=== PATIENT | female | born 1995 | race Caucasian/White ===

== ENCOUNTER 2021-06-07 09:41 | Emergency (ER) | payer OTHER ==
[2021-06-07] MEDS ORDERED: KETOROLAC 30 MG/ML INJ ONE (10:56)
[2021-06-07] MEDS ORDERED: NA CHLORIDE 0.9% 1,000 ML ONE (10:56)
[2021-06-07 11:30] LABS: Absolute Lymphocytes (CBC) 1.8 K/uL (0.7-4.9); Basophils % 0.4 % (0-1.3); Hematocrit 36.3 % (36.0-45.0); Lymphocytes % 13.8 % (15.3-44.8); MPV 7.5 fL (7.6-11.3)
[2021-06-07 11:33] LABS: Urine Bacteria <20 /HPF (<20); Urine RBC LOADED /HPF (NONE SEEN)
[2021-06-07 11:45] LABS: ALT/SGPT 61 U/L (12-78); AST/SGOT 23 U/L (15-37); Albumin 3.9 g/dL (3.4-5.0); Alkaline Phosphatase 73 U/L (45-117); BUN Blood Urea Nitrogen 7 mg/dL (7-18); Bicarbonate 28 mmol/L (21-32); Bilirubin Direct < 0.1 mg/dL (0-0.2); Bilirubin Total 0.3 mg/dL (0.2-1.0); Glucose Level 82 mg/dL (74-106); Lipase 49 U/L (73-393); Potassium 3.6 mmol/L (3.5-5.1); Protein, Total 8.1 g/dL (6.4-8.2); Sodium Level 140 mmol/L (136-145)
--- NOTE | 2021-06-07 11:46 | RAD REPORT ---
EXAM DESCRIPTION: CTAbdomen Pelvis W Contrast - 06/07/2021 11:32 am CLINICAL HISTORY: ABD PAIN COMPARISON: No comparisons TECHNIQUE: CT of the abdomen and pelvis was performed. All CT scans are performed using dose optimization technique as appropriate and may include automated exposure control or mA/KV adjustment according to patient size. FINDINGS: Lower chest: No acute abnormality. Liver: No acute abnormality or suspicious lesions. Biliary: No biliary ductal dilatation. Stomach: No significant focal abnormality. Duodenum: No significant focal abnormality. Pancreas: No significant abnormality. Spleen: No significant abnormality. Adrenal: No suspicious lesions. Kidney/ureter: No hydronephrosis. No renal calculi. Retroperitoneum: No retroperitoneal adenopathy. Vascular: No aneurysm. Bowel: Colonic wall thickening extending from the mid transverse colon through the sigmoid is noted. This portion of the colon is under distended. Normal appendix. Peritoneum: No ascites or free air. Small fat containing umbilical hernia. Bladder: Grossly unremarkable. Reproductive: No adnexal masses. Tampon Bones: No acute fracture. Other: n/a IMPRESSION: Mild colitis versus underdistention, otherwise no acute findings identified. Normal appe ndix. No bowel obstruction.
--- NOTE | 2021-06-07 12:34 | EDPHYS ---
Physician Documentation [facility] [place] Name: Susan Metcalf Age: 25 yrs Sex: Female : 1995 Arrival Date: 06/07/2021 Time: 09:46 Bed 18 Private MD: ED Physician Jane Lawrence HPI: 06/07 10:36 This 25 yrs old Female presents to ER via Ambulatory with complaints of Blood ma2 In Urine. 10:36 The patient presents with abdominal pain in the lower abdomen. Onset: The ma2 symptoms/episode began/occurred gradually, 1 day(s) ago. Associated signs and symptoms: Pertinent positives: hematuria, Pertinent negatives: anorexia, chest pain, diarrhea, fever, vaginal discharge, vomiting blood. Severity of pain: At its worst the pain was moderate in the emergency department the pain is unchanged. The patient has not experienced similar symptoms in the past. 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 - Social history:: Smoking status: Patient denies any tobacco usage or history of. Patient/guardian denies using alcohol, street drugs, The patient lives with family. - Family history:: not pertinent. ROS: 10:36 Constitutional: Negative for fever, chills, and weight loss. ma2 10:36 All other systems are negative. Exam: 10:36 Constitutional: This is a well developed, well nourished patient who is awake, alert, ma2 and in no acute distress. Eyes: Pupils equal round and reactive to light, extra-ocular motions intact. Lids and lashes normal. Conjunctiva and sclera are non-icteric and not injected. Cornea within normal limits. Periorbital areas with no swelling, redness, or edema. ENT: Nares patent. No nasal discharge, no septal abnormalities noted. Tympanic membranes are normal and external auditory canals are clear. Oropharynx with no redness, swelling, or masses, exudates, or evidence of obstruction, uvula midline. Mucous membranes moist. Neck: Trachea midline, no thyromegaly or masses palpated, and no cervical lymphadenopathy. Supple, full range of motion without nuchal rigidity, or vertebral point tenderness. No Meningismus. Chest/axilla: Normal chest wall appearance and motion. Nontender with no deformity. No lesions are appreciated. Cardiovascular: Regular rate and rhythm with a normal S1 and S2. No gallops, murmurs, or rubs. Normal PMI, no JVD. No pulse deficits. Respiratory: Lungs have equal breath sounds bilaterally, clear to auscultation and percussion. No rales, rhonchi or wheezes noted. No increased work of breathing, no retractions or nasal flaring. Abdomen/GI: Soft, non-tender, with normal bowel sounds. No distension or tympany. No guarding or rebound. No evidence of tenderness throughout. Back: No spinal tenderness. No costovertebral tenderness. Full range of motion. Skin: Warm, dry with normal turgor. Normal color with no rashes, no lesions, and no evidence of cellulitis. MS/ Extremity: Pulses equal, no cyanosis. Neurovascular intact. Full, normal range of motion. Neuro: Awake and alert, GCS 15, oriented to person, place, time, and situation. Cranial nerves II-XII grossly intact. Motor strength 5/5 in all extremities. Sensory grossly intact. Cerebellar exam normal. Normal gait. Vital Signs: 09:59 BP 126 / 71; Pulse 84; Resp 16; Temp 98.6; Pulse Ox 100% ; Weight 74.84 kg; Height 5 vg1 ft. 7 in. (170.18 cm); Pain 7/10; 09:59 Body Mass Index 25.84 (74.84 kg, 170.18 cm) vg1 MDM: 10:07 Patient medically screened. ma2 10:36 Differential diagnosis: gastritis, gastroesophageal reflux disease, Irritable bowel ma2 syndrome, pancreatitis. 12:33 Data reviewed: vital signs, nurses notes. Counseling: I had a detailed discussion with ma2 the patient and/or guardian regarding: the historical points, exam findings, and any diagnostic results supporting the discharge/admit diagnosis, the presence of at least one elevated blood pressure reading (>120/80) during this emergency department visit, the need for outpatient follow up. Response to treatment: the patient's symptoms have markedly improved after treatment. 06/07 10:34 Order name: Basic Metabolic Panel; Complete Time: 11:58 ma2 06/07 10:34 Order name: CBC with Diff; Complete Time: 11:44 ma2 06/07 10:34 Order name: Hepatic Function; Complete Time: 11:58 ma2 06/07 10:34 Order name: Lipase; Complete Time: 11:58 ma2 06/07 10:56 Order name: Urine Microscopic Only; Complete Time: 11:44 ss 06/07 11:34 Order name: Urine Culture EDMS 06/07 10:07 Order name: Urine Dipstick-Ancillary (obtain specimen); Complete Time: 10:56 ma2 06/07 10:07 Order name: Urine Test (obtain specimen); Complete Time: 10:56 ma2 06/07 10:34 Order name: IV Saline Lock; Complete Time: 11:22 ma2 06/07 10:34 Order name: Labs collected and sent; Complete Time: 11:22 ma2 06/07 10:34 Order name: CT Abd/Pelvis - IV Contrast Only; Complete Time: 11:58 ma2 Administered Medications: 10:48 Drug: Ketorolac 30 mg Route: IVP; Site: right antecubital; sl2 13:17 Follow up: Response: No adverse reaction; Pain is decreased sl2 10:50 Drug: NS 0.9% 1000 ml Route: IV; Rate: 1 bolus; Site: right antecubital; sl2 13:17 Follow up: Response: No adverse reaction; Pain is decreased; IV Status: Completed sl2 infusion; IV Intake: 10ml 12:40 Drug: Rocephin (cefTRIAXone) 1 grams Route: IV; Rate: calculated rate; Site: right sl2 antecubital; 13:17 Follow up: Response: No adverse reaction; IV Status: Completed infusion; IV Intake: [id number] Disposition Summary: 06/07/21 12:33 Discharge Ordered Location: Home ma2 Condition: Stable ma2 Diagnosis - Acute cystitis with hematuria ma2 - Other specified noninfective gastroenteritis and colitis ma2 Followup: ma2 - With: Private Physician - When: Tomorrow - Reason: If symptoms return Discharge Instructions: - Discharge Summary Sheet ma2 - Urinary Tract Infection, Adult, [id number] ma2 Forms: - Medication Reconciliation Form ma2 - Thank You Letter ma2 - Antibiotic Education ma2 - Prescription Opioid Use ma2 Prescriptions: - Flagyl 500 mg Oral Tablet - take 1 tablet by ORAL route every 12 hours for 7 days; 14 tablet; Refills: 0, ma2 Product Selection Permitted - Cipro 500 mg Oral Tablet - take 1 tablet by ORAL route every 12 hours for 7 days; 14 tablet; Refills: 0, ma2 Product Selection Permitted - Diclofenac Sodium 75 mg Oral Tablet Sustained Release - take 1 tablet by ORAL route 2 times per day; 30 tablet; Refills: 0, Product ma2 Selection Permitted Signatures: Dispatcher [employer] EDJane Kaminski MD MD ma2 Any Sigala RN RN vg1 Kim Stuart RN RN sl2
--- NOTE | 2021-06-07 12:34 | ER ---
Nurse's Notes [facility] Name: Susan Metcalf Age: 25 yrs Sex: Female : 1995 Arrival Date: 06/07/2021 Time: 09:46 Bed 18 Private MD: Diagnosis: Acute cystitis with hematuria;Other specified noninfective gastroenteritis and colitis Presentation: 06/07 09:59 Chief complaint: Patient states: Left flank pain x3 days; nausea and dizziness, blood vg1 in urine today, burning upon urination and states pressure. Also states lower ABD pain. Coronavirus screen: Vaccine status: Patient reports receiving the 1st dose of the Covid vaccine. Ebola Screen: Patient negative for fever greater than or equal to 101.5 degrees Fahrenheit, and additional compatible Ebola Virus Disease symptoms. Initial Sepsis Screen: Does the patient meet any 2 criteria? No. Patient's initial sepsis screen is negative. Does the patient have a suspected source of infection? No. Patient's initial sepsis screen is negative. Risk Assessment: Do you want to hurt yourself or someone else? Patient reports no desire to harm self or others. Onset of symptoms was June 04, 2021. 09:59 Method Of Arrival: Ambulatory vg1 09:59 Acuity: JOSE JUAN 3 vg1 Triage Assessment: 10:01 General: Appears in no apparent distress. uncomfortable, Behavior is calm, cooperative. vg1 Pain: Complains of pain in left flank, lower ABD. 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 - Social history:: Smoking status: Patient denies any tobacco usage or history of. Patient/guardian denies using alcohol, street drugs, The patient lives with family. - Family history:: not pertinent. Screenin:50 Abuse screen: Denies threats or abuse. sl2 09:50 Nutritional screening: No deficits noted. Tuberculosis screening: No symptoms or risk sl2 factors identified. Fall Risk None identified. Assessment: 10:10 Reassessment: Patient encouraged to provide urine specimen . sl2 Vital Signs: 09:59 BP 126 / 71; Pulse 84; Resp 16; Temp 98.6; Pulse Ox 100% ; Weight 74.84 kg; Height 5 vg1 ft. 7 in. (170.18 cm); Pain 7/10; 09:59 Body Mass Index 25.84 (74.84 kg, 170.18 cm) vg1 ED Course: 09:46 Patient arrived in ED. ds1 09:50 Patient has correct armband on for positive identification. Bed in low position. Call sl2 light in reach. Side rails up X2. Adult w/ patient. 10:01 Triage completed. vg1 10:01 Arm band placed on. vg1 10:07 Jane Lawrence MD is Attending Physician. ma2 10:37 Kim Stuart, ROLAND is Primary Nurse. sl2 11:00 Inserted saline lock: 22 gauge in right antecubital area, using aseptic technique. sl2 Blood collected. 11:[address] via wheelchair. sl2 11:32 CT Abd/Pelvis - IV Contrast Only In Process Unspecified. EDMS 13:26 No provider procedures requiring assistance completed. IV discontinued, intact, ss bleeding controlled, No redness/swelling at site. Pressure dressing applied. Administered Medications: 10:48 Drug: Ketorolac 30 mg Route: IVP; Site: right antecubital; sl2 13:17 Follow up: Response: No adverse reaction; Pain is decreased sl2 10:50 Drug: NS 0.9% 1000 ml Route: IV; Rate: 1 bolus; Site: right antecubital; sl2 13:17 Follow up: Response: No adverse reaction; Pain is decreased; IV Status: Completed sl2 infusion; IV Intake: 10ml 12:40 Drug: Rocephin (cefTRIAXone) 1 grams Route: IV; Rate: calculated rate; Site: right sl2 antecubital; 13:17 Follow up: Response: No adverse reaction; IV Status: Completed infusion; IV Intake: [id number] Intake: 13:17 IV: 10ml; Total: 10ml. sl2 13:17 IV: 10ml; Total: 20ml. sl2 Outcome: 12:33 Discharge ordered by . ma2 13:26 Discharged to home ambulatory, with family. 13:26 Condition: good 13:26 Discharge instructions given to patient, family, Instructed on discharge instructions, follow up and referral plans. medication usage, Demonstrated understanding of instructions, follow-up care, medications, Prescriptions given X 3. 13:35 Patient left the ED. Addendum: 06/12/2021 10:40 Addendum: Culture Results: Positive urine culture. Bacteria is resistant to, has a a5 intermediate sensitivity, or is not tested against prescribed antibiotics. 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 Prescription called-in to pharmacy of choice. Augmentin 875 mg PO BID x 7 days per Destinee Richardson NP, called in to [facility] pharmacy in [place], [place]. Signatures: Dispatcher [employer] [facility] Sam Aiyana ds1 Claudia Hughes, RN RN aa5 Grisel Valentin RN RN ss Jane Lawrence MD MD ma2 Any Sigala RN RN vg1 Kim Stuart RN RN sl2
[2021-06-07] MEDS ORDERED: CEFTRIAXONE 1000 MG/VIAL ONE (12:49)
[2021-06-07 14:17] VITALS: BP 126/71; TEMP 98.6; O2SAT 100
--- OUTSIDE RECORDS SUMMARY | 2021-06-10 18:56 | XMS REPORT | Continuity of Care Document ---
:[address] [facility] t Address [facility] Xavier [address]ard [address] [place] [address] Care Team Providers Name Role Phone WILFREDO Primary Care Physician Unavailable ELVIRA Attending Clinician Unavailable WILFREDO Attending Clinician Unavailable Elvira CANDELARIA Attending Clinician Doctor Unassigned, Name Attending Clinician Unavailable ABDIEL Attending Clinician Unavailable Payers Payer Name Policy Type Policy Number Effective Date Expiration Date [facility] [id number] 2020 00:00:00 [employer] PPO I [id number] 2008 00:00:00 Problems Condition Condition Condition Status Onset Resolution Last Treating Co mments Source Name Details Category Date Date Treatment Clinician Date No known No known Disease Unive rs active active ity of problems problems [facility] Allergies, Adverse Reactions, Alerts Allergy Allergy Status Severity Reaction(s) Onset Inactive Treating Comm ents Source Name Type Date Date Clinician NO KNOWN Drug Active Univers ALLERGIE Class ity of S [facility] Social History Social Habit Start Date Stop Date Quantity Comments Source History SDOH University o f Alcohol Frequency [place] [facility] History SDOH University o f Alcohol Std [place] [facility] Drinks [facility] History SDOH University o f Alcohol Binge [place] [facility] Exposure to Not sure University of SARS-CoV-2 [facility] (event) Branch Tobacco use and 2021-05-18 2021-05-18 Never used Universit y of exposure 00:00:00 00:00:00 [facility] Alcohol intake 2021-05-18 2021-05-18 Current drinker Unive rsity of 00:00:00 00:00:00 of alcohol [facility] (finding) Branch Alcohol Comment 2021-05-18 2021-05-18 social/ rare Univers ity of 00:00:00 00:00:00 [facility] Sex Ass[birth year] Universit y of 00:00:00 00:00:00 [facility] Smoking Status Start Date Stop Date Source Never smoker [facility] Medications Ordered Filled Start Stop Current Ordering Indication Dosage Frequency Signature Comments Components Source Medication Medication Date Date Medication? Clinician (SIG) Name Name norgestimat 2020-07 Yes [id number] 1{tbl} Take 1 Univers e-ethinyl 0-21 tablet by ity o f estradioL 00:00: mouth [place] 0.25-35 00 daily. Medical mg-mcg per Branch tablet norgestimat 2020-07 Yes [id number] 1{tbl} Take 1 Univers e-ethinyl 0-21 tablet by ity o f estradioL 00:00: mouth [place] 0.25-35 00 daily. Medical mg-mcg per Branch tablet norgestimat 2020-07 Yes [id number] 1{tbl} Take 1 Univers e-ethinyl 0-21 tablet by ity o f estradioL 00:00: mouth [place] 0.25-35 00 daily. Medical mg-mcg per Branch tablet dexmethylph 2020-07 Yes Univer s enidate 10 0-07 ity of mg 24 hr 00:00: [place] capsule [facility] dexmethylph 2020-07 Yes Univer s enidate 10 0-07 ity of mg 24 hr 00:00: [place] capsule [facility] dexmethylph 2020-07 Yes Univer s enidate 10 0-07 ity of mg 24 hr 00:00: [place] capsule [facility] Immunizations Ordered Filled Immunization Date Status Comments Sourc e Immunization Name Name Influenza Virus 2021-05-18 Completed Universit y of Vaccine Quad IM, 00:00:00 [place] [facility] Preserv and ABX Branch Free 6 MO-64 YRS HPV9 2021-05-18 Completed University 00:00:00 [facility] Influenza Virus 2021-05-18 Completed Universit y of Vaccine Quad IM, 00:00:00 [place] [facility] dical Preserv and ABX Branch Free 6 MO-64 YRS HPV9 2021-05-18 Completed University 00:00:00 [facility] Influenza Virus 2021-05-18 Completed Universit y of Vaccine Quad IM, 00:00:00 [facility] dical Preserv and ABX Branch Free 6 MO-64 YRS HPV9 2021-05-18 Completed University 00:00:00 [facility] SARS-COV-2 COVID-19 2021-03-06 Completed Unive rsity of CRISTOBAL/J&J VACCINE 00:00:00 [facility] SARS-COV-2 COVID-19 2021-03-06 Completed Unive rsity of CRISTOBAL/J&J VACCINE 00:00:00 [facility] SARS-COV-2 COVID-19 2021-03-06 Completed Unive rsity of CRISTOBAL/J&J VACCINE 00:00:00 [facility] Vital Signs Vital Name Observation Time Observation Value Comments Source Systolic blood 2021-05-18 20:33:00 124 mm[Hg] Univer sity of pressure [facility] Diastolic blood 2021-05-18 20:33:00 75 mm[Hg] Unive rsity of pressure [facility] Heart rate 2021-05-18 20:33:00 85 /min [facility] Body temperature 2021-05-18 20:33:00 36.56 [facility] Respiratory rate 2021-05-18 20:33:00 18 /min [facility] Body height 2021-05-18 20:33:00 170.2 cm [facility] Body weight 2021-05-18 20:33:00 75.751 kg [facility] BMI 2021-05-18 20:33:00 26.16 kg/m2 [facility] Procedures Procedure Date / Time Performing Clinician Source Performed GARDASIL 9 (HPV 9V) 2021-05-18 20:50:56 Elizabeth Felix [facility] VACCINE [facility] Branch FLU VACC ([id number]), 2021-05-18 20:50:56 Elizabeth Felix [facility] 2-64 YRS, .5ML, IM, QUAD Medical Branch (FLUCELVAX) CONSENT FOR ORAL 2021-05-18 05:01:00 Doctor Unassigned, [facility] CONTRACEPTIVES [place] [facility] Encounters Start End Encounter Admission Attending Care Care Encounter Source Date/Time Date/Time Type Type Clinicians Facility Department ID 2022-05-23 2022-05-23 Outpatient R ELVIRA [facility] [id number] Univers 13:00:00 13:00:00 ELIZABETH [id number] ity [facility] 2021-08-01 2021-08-01 Outpatient R ELVIRA [facility] [id number] Univers 13:30:00 13:30:00 ELIZABETH [id number] ity [facility] 2021-07-10 2021-07-10 Outpatient R WILFREDO, [facility] [id number] Univers 07:30:00 07:30:00 [id number] 2021-06-12 2021-06-12 Outpatient R [facility] [id number] Univers 15:00:00 15:00:00 [id number] [facility] [place] [facility] 2021-06-12 2021-06-12 Outpatient R [facility] [id number] Univers 15:00:00 [facility] [place] [facility] 2021-06-09 2021-06-09 Outpatient R WILFREDO, [facility] [id number] Univers 14:00:00 14:00:00 [facility] [id number] [facility] [place] [facility] 2021-06-09 2021-06-09 Outpatient R WILFREDO, [facility] [id number] Univers 14:00:00 14:00:00 JONE [facility] 2021-06-05 2021-06-05 Outpatient R ELVIRA, [facility] [id number] Univers 13:00:00 13:00:00 [facility] [id number] [facility] [place] [facility] 2021-06-05 2021-06-05 Outpatient R WILFREDO, [facility] [id number] Univers 13:00:00 13:00:00 JONE [facility] 2021-05-19 2021-05-19 Outpatient [facility] [id number] Univers 15:30:00 15:30:00 [id number] [facility] [place] [facility] 2021-05-18 2021-05-18 [facility] [id number] Univers 14:30:00 16:15:51 [facility] [place] [facility] 2021-05-18 2021-05-18 [facility] [id number] Univers 14:25:01 16:15:51 Visit Elizabeth Cerrato [id number] i [id number] [phone] [place] dical [place]al [address] [place] [address] 2021-05-18 2021-05-18 Outpatient R ELVIRA [facility] [id number] Univers 14:30:00 14:30:00 ELIZABETH [id number] [facility] 2021-05-18 2021-05-18 Orders Doctor ANA [id number] Univers 00:00:00 00:00:00 Only Unassigned, EDUARDO [id number] ity of [place] [facility] [id number] Jasen as [id number] [address] 2021-03-02 2021-03-02 Outpatient [facility] [id number] Univers 17:00:00 17:00:00 [id number] [facility] 2021-03-02 2021-03-02 [facility] [id number] Univers 17:00:00 17:00:00 ARMANI [facility] 2020-04-08 2020-04-08 Outpatient [facility] [id number] Univers 10:00:00 10:00:00 JONE [facility] Results This patient has no known results.
== END 2021-06-07 13:35 | disposition home or self-care (01) ==
LOC: ER 09:41
DX: N30.01 Acute cystitis with hematuria (principal); K52.89 Other specified noninfective gastroenteritis and colitis; K21.9 Gastro-esophageal reflux disease without esophagitis; F98.8 Other specified behavioral and emotional disorders with onset usually occurring in childhood and adolescence; F32.A Depression, unspecified; F41.9 Anxiety disorder, unspecified
CPT/HCPCS: 96365; 96361; 87088; 85025; 87086; 80048; 36415; 82565; 80076; 87077; 87186; 81015; 83690; 74177; 96375; 99284; Q9967; J7030